=== PATIENT | male | born 1940 | race Caucasian/White ===

== ENCOUNTER → 2023-10-08 14:24 | Outpatient (REF) | payer MEDICARE, OTHER, SELFPAY | LOC: DHCBC MAIN 14:24 | PROVIDERS: ATTENDING PHYSICIAN Internal Medicine Cardiovascular Disease; FAMILY PHYSICIAN Family Medicine | DX: I49.3 Ventricular premature depolarization (principal); I42.8 Other cardiomyopathies; I10 Essential (primary) hypertension; I45.2 Bifascicular block | CPT/HCPCS: 93306 ==